=== PATIENT | female | born 1940 | race Two or more races ===

== ENCOUNTER 2016-09-08 18:48 | Emergency (ER) | payer OTHER ==
[2016-09-08 19:03] VITALS: TEMP 97.7
--- NOTE | 2016-09-08 19:12 | UCPHY ---
H & P Patient Type: Established Chief Complaint Nursing Narrative: c/o frequent diarrhea and nausea. seen in urgent care yesterday for same as weel at here pcp today HPI/ROS: HPI CHIEF COMPLAINT: Abdominal pain, nausea, diarrhea HISTORY OF PRESENT ILLNESS: this patient very pleasant 76-year-old female, significant past medical history for insulin-dependent diabetes she presents to the urgent care with ongoing watery diarrhea and now has worsening abdominal pain with associated nausea. She denies fever, denies chest pain or shortness of breath, denies any active vomiting today. She states she was seen here yesterday for diarrheal illness. Diagnosed with gastroenteritis. She was unable to follow up with her primary care doctor today she called them and states that she was still having further diarrhea was recommended come to the emergency room or urgent care to get IV fluids. Upon arrival here she is complaining of diffuse crampy abdominal pain watery diarrhea with yellow tinge, no blood. Denies fever. No vomiting. Past Medical History: Insulin-dependent diabetes, hyperlipidemia, hypertension , thyroid disease Past Surgical History: No recent surgical history Social History: Denies use of drugs alcohol tobacco products, lives locally Family History: Noncontributory ROS REVIEW OF SYSTEMS: A comprehensive 10 point review of systems is otherwise negative aside from elements mentioned in the history of present illness. Exam Constitutional triage nursing summary reviewed, vital signs reviewed, awake/ alert. Eyes normal conjunctivae and sclera, EOMI, PERRLA. HENT normal inspection, atraumatic, moist mucus membranes, no epistaxis, neck supple/ no meningismus, no raccoon eyes. Respiratory clear to auscultation bilaterally, normal breath sounds, no respiratory distress, no wheezing. Cardiovascular rate normal, regular rhythm, no murmur, no edema, distal pulses normal. Gastrointestinal mild tenderness palpation diffusely, , no rebound, no guarding , normal bowel sounds, no distension, no pulsatile mass. Genitourinary no CVA tenderness. Musculoskeletal no midline vertebral tenderness, full range of motion, no calf swelling, no tenderness of extremities, no meningismus, good pulses, neurovascularly intact. Skin pink, warm, & dry, no rash, skin atraumatic. Neurologic awake, alert and oriented x 3, AAOx3, moves all 4 extremities equally, motor intact, sensory intact, CN II-XII intact, normal cerebellar, normal vision, normal speech. Psychiatric normal mood/affect. Heme/Lymph/Immune no lymphadenopathy. Differential diagnosis includes but is not limited to and in no particular order : colitis, diverticulitis, enteritis, gastroenteritis, Bowel obstruction, appendicitis, gallbladder disease, enteritis, perforated viscus, gastritis, GERD , esophagitis, urinary tract infection, pyelonephritis, kidney stones Medical Decision Making: This patient had an IV established receive IV fluids normal saline 1 L order, IV Zofran for nausea, will check abdominal blood work including lipase, LFTs, CBC, lactic acid, due to the abdominal pain worsening diarrhea she will have a CT scan abdomen pelvis with IV contrast rule out significant acute intra-abdominal inflammatory process. Re-evaluation: CT scan of the abdomen pelvis with IV contrast. The results of the study are shows enteritis, no bowel wall thickening, no obstruction, no dilated loops of bowel there is fluid-filled small bowel and large bowel consistent with enteritis diarrhea illness The study was read by Dr. Stokes. I viewed the images myself on the PACS system. 2035: re-evaluation at this time this patient is resting comfortably no acute distress. Abdomen remained soft nontender. She is not vomiting. She did have diarrhea here. Stool studies have been sent. CT scan reviewed shows enteritis , no evidence of acute inflammatory process. Blood work review shows no high white count no significant electrolyte abnormality creatinine slightly elevated 1.5 she received 2 L of normal saline here in the emergency room. I do recommend she has close follow-up with her primary care doctor. Continues to take antidiarrheal medicine. Will follow up stool studies. However this time I feel that she appears well, not ill, not toxic, no fever, blood work is reassuring psoas CT scan most likely this is just a diarrheal illness. Follow up [facility]. Source: Patient - Medical/Surgical History Hx Asthma: No Hx Chronic Respiratory Disease: No Hx Diabetes: Yes Hx Cardiac Disease: No Hx Renal Disease: No Hx Cirrhosis: No Hx Alcoholism: No Hx HIV/AIDS: No Hx Splenectomy or Spleen Trauma: No Other PMH: high cholesterol. diabetes type II. hypothyroid. anxiety and depression. hypertension - Family History Significant Family History: No pertinent family hx - Social History Smoking Status: Never smoked Constitutional: Initial Vital Signs Temperature (C) 36.5 C 09/08/16 18:57 Heart Rate 101 H 09/08/16 18:57 Respiratory Rate 20 09/08/16 18:57 Blood Pressure 133/57 H 09/08/16 18:57 O2 Sat (%) 100 09/08/16 18:57 O2 Delivery Mode Room Air Allergies/Adverse Reactions: Penicillins Allergy (Verified 09/07/16 11:49) Home Medications: Medication Instructions Recorded Aspirin EC 81 mg (*) 09/07/16 GLIPIZIDE 10 mg 09/07/16 Losartan Potassium [Cozaar 50 mg 09/07/16 (*)] Lovastatin 09/07/16 Lthyroxine 09/07/16 Multi-Day Vitamins 09/07/16 Osteo Bi-Flex Tablet 09/07/16 Sertraline HCl 09/07/16 Medical Decision Making - Data Points Laboratory Results: Laboratory Results 09/08/16 19:12 09/08/16 19:12 09/08/16 09/08/16 09/08/16 19:35 19:12 19:12 WBC RBC Hgb Hct MCV MCH MCHC RDW Plt Count MPV Neut % (Auto) Lymph % (Auto) Clare % (Auto) Eos % (Auto) Baso % (Auto) Nucleat RBC Rel Count Absolute Neuts (auto) Absolute Lymphs (auto) Absolute Monos (auto) Absolute Eos (auto) Absolute Basos (auto) Absolute Nucleated RBC Immature Gran % Immature Gran # PT 12.4 SEC SEC (12.0-15.0) INR 0.94 (0.83-1.16) APTT 25.1 SEC SEC (23.0-38.0) VBG Lactic Acid Sodium 141 mEq/L mEq/L (134-144) Potassium 3.9 mEq/L mEq/L (3.5-5.2) Chloride 104 mEq/L mEq/L (97-110) Carbon Dioxide 21 mEq/l L mEq/l (22-31) Anion Gap 16 mEq/L mEq/L (8-16) BUN 25 mg/dL H mg/dL (7-23) Creatinine 1.5 mg/dL H mg/dL (0.6-1.0) Estimated GFR 34 Glucose 109 mg/dL H mg/dL (70-100) Calcium 9.1 mg/dL mg/dL (8.5-10.4) Total Bilirubin 0.7 mg/dL mg/dL (0.1-1.4) Conjugated Bilirubin 0.3 mg/dL mg/dL (0.0-0.5) Unconjugated Bilirubin 0.4 mg/dL mg/dL (0.0-1.1) AST 38 IU/L IU/L (14-46) ALT 37 IU/L IU/L (9-52) Alkaline Phosphatase 52 IU/L IU/L (38-126) Total Protein 6.7 g/dL g/dL (6.3-8.2) Albumin 3.8 g/dL g/dL (3.5-5.0) Lipase 192.0 IU/L IU/L (23-300) C. difficile Tox (PCR) Pending 09/08/16 09/08/16 19:12 19:12 WBC 6.93 10^3/uL D 10^3/uL (3.80-9.50) RBC 4.67 10^6/uL 10^6/uL (4.18-5.33) Hgb 14.3 g/dL g/dL (12.6-16.3) Hct 42.8 % % (38.0-47.0) MCV 91.6 fL fL (81.5-99.8) MCH 30.6 pg pg (27.9-34.1) MCHC 33.4 g/dL g/dL (32.4-36.7) RDW 13.3 % % (11.5-15.2) Plt Count 262 10^3/uL D 10^3/uL (150-400) MPV 9.5 fL fL (8.7-11.7) Neut % (Auto) 72.5 % % (39.3-74.2) Lymph % (Auto) 17.2 % % (15.0-45.0) Clare % (Auto) 7.4 % % (4.5-13.0) Eos % (Auto) 2.2 % % (0.6-7.6) Baso % (Auto) 0.4 % % (0.3-1.7) Nucleat RBC Rel Count 0.0 % % (0.0-0.2) Absolute Neuts (auto) 5.03 10^3/uL 10^3/uL (1.70-6.50) Absolute Lymphs (auto) 1.19 10^3/uL 10^3/uL (1.00-3.00) Absolute Monos (auto) 0.51 10^3/uL 10^3/uL (0.30-0.80) Absolute Eos (auto) 0.15 10^3/uL 10^3/uL (0.03-0.40) Absolute Basos (auto) 0.03 10^3/uL 10^3/uL (0.02-0.10) Absolute Nucleated RBC 0.00 10^3/uL 10^3/uL (0-0.01) Immature Gran % 0.3 % % (0.0-1.1) Immature Gran # 0.02 10^3/uL 10^3/uL (0.00-0.10) PT INR APTT VBG Lactic Acid 1.7 mmol/L mmol/L (0.7-2.1) Sodium Potassium Chloride Carbon Dioxide Anion Gap BUN Creatinine Estimated GFR Glucose Calcium Total Bilirubin Conjugated Bilirubin Unconjugated Bilirubin AST ALT Alkaline Phosphatase Total Protein Albumin Lipase C. difficile Tox (PCR) Medications Given: Discontinued Medications Sodium Chloride (Ns) 1,000 mls @ 0 mls/hr IV ONCE ONE PRN Reason: Wide Open Stop: 09/08/16 19:14 Last Admin: 09/08/16 19:15 Dose: 1,000 mls Ondansetron HCl (Zofran) 4 mg IVP EDNOW ONE Stop: 09/08/16 19:14 Last Admin: 09/08/16 19:20 Dose: 4 mg Departure - Departure Disposition: Home, Routine, Self-Care Clinical Impression: Diarrhea Qualifiers: Diarrhea type: unspecified type Qualified Code(s): R19.7 - Diarrhea, unspecified Condition: Good Instructions: Dehydration (ED), Acute Diarrhea (ED) Additional Instructions: 1.Continue to try to stay well-hydrated drink lots of fluids 2. call tomorrow about your stool studies including C diff. 3.Your CT scan shows that you have a diarrheal illness there is no inflammation. 4.Please follow up with her primary care doctor. Referrals: NONE *PRIMARY CARE P,. [Primary Care Provider] - As per Instructions - PQRS PQRS Measurement: n/a
[2016-09-08] MEDS ORDERED: ONDANSETRON 4 MG/2 ML VIAL IVP ONE (19:13)
[2016-09-08] MEDS ORDERED: NS 1,000 ML IV ONE ×2 (19:13→19:59)
[2016-09-08 19:19] LABS: % IMMATURE GRANULYOCYTES 0.3 % (0.0-1.1); ABSOLUTE IMMATURE GRANULOCYTES 0.02 10^3/uL (0.00-0.10); ADD DIFF? NO; ADD MORPH? NO; ADD SCAN? NO; ATYPICAL LYMPHOCYTE FLAG 20 (0-99); FRAGMENT RBC FLAG 0 (0-99); HEMATOCRIT 42.8 % (38.0-47.0); HEMOGLOBIN 14.3 g/dL (12.6-16.3); LEFT SHIFT FLG 0 (0-99); LIPEMIA HEMOLYSIS FLAG 80 (0-99); MEAN CELL HEMOGLOBIN 30.6 pg (27.9-34.1); MEAN CELL HEMOGLOBIN CONCENTR. 33.4 g/dL (32.4-36.7); MEAN CELL VOLUME 91.6 fL (81.5-99.8); MEAN PLATELET VOLUME 9.5 fL (8.7-11.7); PLATELET CLUMPS FLAG 0 (0-99); PLATELET COUNT 262 10^3/uL (150-400); RED BLOOD CELL COUNT 4.67 10^6/uL (4.18-5.33); RED CELL DISTRIBUTION WIDTH 13.3 % (11.5-15.2)
[2016-09-08 19:28] LABS: INR 0.94 (0.83-1.16); PROTIME(PATIENT) 12.4 SEC (12.0-15.0)
[2016-09-08 19:29] LABS: APTT 25.1 SEC (23.0-38.0)
[2016-09-08 19:31] LABS: ALBUMIN 3.8 g/dL (3.5-5.0); BILIRUBIN,TOTAL 0.7 mg/dL (0.1-1.4); BILIRUBIN-CONJUGATED 0.3 mg/dL (0.0-0.5); BILIRUBIN-UNCONJUGATED 0.4 mg/dL (0.0-1.1); CALCIUM 9.1 mg/dL (8.5-10.4); CREATININE 1.5 mg/dL (0.6-1.0); POTASSIUM 3.9 mEq/L (3.5-5.2); TOTAL PROTEIN 6.7 g/dL (6.3-8.2)
[2016-09-08] MEDS ORDERED: IOPAMIDOL (ISOVUE-300) 100 ML BTL IV ONE (19:39)
[2016-09-08 22:27] VITALS: BP 120/63; PULSE 92; RESP 18; O2SAT 91
== END 2016-09-08 22:27 | disposition home or self-care (01) ==
LOC: CED 18:48
DX: K52.9 Noninfective gastroenteritis and colitis, unspecified (principal); R10.9 Unspecified abdominal pain; R11.0 Nausea; E78.00 Pure hypercholesterolemia, unspecified; E11.9 Type 2 diabetes mellitus without complications; I10 Essential (primary) hypertension
CPT/HCPCS: 74176; 96361; 96374; G0463; J2405; 80048-PO; 80076-PO; 83605-PO; 83690-PO; 85025-PO; 85610-PO; 85730-PO; 99215-PO; Q9967

== ENCOUNTER → 2017-05-18 | Outpatient (CLI) | payer OTHER | LOC: BRMIMAGING 12:58 | PROVIDERS: ATTEND Family Medicine | DX: Z12.31 Encounter for screening mammogram for malignant neoplasm of breast (principal) | CPT/HCPCS: G0202 ==

== ENCOUNTER → 2018-07-04 | Outpatient (CLI) | payer OTHER | LOC: BRMIMAGING 12:55 | PROVIDERS: ATTEND Family Medicine | DX: Z12.31 Encounter for screening mammogram for malignant neoplasm of breast (principal) ==

== ENCOUNTER → 2018-07-08 | Outpatient (CLI) | payer OTHER | LOC: BRMIMAGING 08:51 | PROVIDERS: ATTEND Family Medicine | DX: R92.0 Mammographic microcalcification found on diagnostic imaging of breast (principal) ==